=== PATIENT | female | born 1955 | race Caucasian/White ===

== ENCOUNTER 2019-06-01 22:32 | Emergency (ER) | payer MEDICAID, OTHER ==
[~2019-06-01] VITALS: Ht 170.2 cm; Wt 124.7 kg
[2019-06-01 23:00] VITALS: BP 144/74
[2019-06-02 01:49] VITALS: BP 167/77
== END 2019-06-02 01:49 | disposition home or self-care (01) ==
LOC: MED 22:32
DX: S50.362A Insect bite (nonvenomous) of left elbow, initial encounter (principal); L03.114 Cellulitis of left upper limb; I10 Essential (primary) hypertension; W57.XXXA Bitten or stung by nonvenomous insect and other nonvenomous arthropods, initial encounter; Y92.89 Other specified places as the place of occurrence of the external cause; Y93.89 Activity, other specified; Y99.8 Other external cause status
CPT/HCPCS: 99283